=== PATIENT | male | born 1980 | race Caucasian/White ===

== ENCOUNTER → 2018-01-23 | Outpatient (CLI) | payer OTHER ==
[~2018-01-23] MED LIST: ALBUTEROL SULFATE 0.083% NEB 2.5 MG/3 ML AMPUL NEB ONE
--- NOTE | 2018-01-24 14:58 | Pulmonary Function Test ---
Pulmonary Function Test Date of Procedure:: 01/23/18 INDICATION:: wheezing Referring Provider: Dr. Carolina Lozano Streetcar Operator: Ginny Polanco VIDEOTAPE RECORDING ENGINEER, ENGAGEMENT SPECIALIST - Report Spirometry: FVC 4.25 L 80% 87% postbronchodilator 4.24 L 87% FEV1 3.58 L 89% postbronchodilator 3.68 L 91% FEV1/FVC % 84 postbronchodilator 87 predicted 83 FEF 25-75% 3.90 L 91% postbronchodilator 4.72 L 110% Impression: No evidence for obstructive ventilatory defect
== END ==
LOC: RT 09:11
PROVIDERS: ATTEND Family Medicine
DX: R06.2 Wheezing (principal)
CPT/HCPCS: 94060